=== PATIENT | male | born 1940 | race Caucasian/White ===

== ENCOUNTER → 2018-07-17 | Outpatient (CLI) | payer MEDICARE | END | disposition home or self-care (01) | LOC: LABPAT 13:39 | PROVIDERS: ATTEND Orthopaedic Surgery | DX: Z01.812 Encounter for preprocedural laboratory examination (principal) | CPT/HCPCS: 86850; 86900; 86901; 87070 ==

== ENCOUNTER 2018-07-27 05:53 | Inpatient (IN) | payer MEDICARE ==
[2018-07-23 10:12] VITALS: BMI 37.5
--- NOTE | 2018-07-26 17:16 | HP ---
HISTORY AND PHYSICAL REASON FOR ADMISSION: Surgery scheduled for 07/27/2018 HISTORY OF PRESENT ILLNESS: Laurent Argueta is a 78-year-old patient seen with symptomatic right hip osteoarthritis. Treatment options were discussed. He elected to proceed with direct anterior total hip arthroplasty. Consent was obtained. Medical clearance was provided by Dr. Sibley. PAST MEDICAL HISTORY: Bln-yhcjiis-[id number] diabetes, hypertension. PAST SURGICAL HISTORY: Noncontributory. MEDICATIONS: Lisinopril, glimepiride, allopurinol. ALLERGIES: SULFA. SOCIAL HISTORY: Denies tobacco use. PHYSICAL EXAMINATION: Evaluation of the right hip, he has very limited range of motion with severe pain. Positive hip impingement sign. Straight leg raise negative. Distal neurovascular exam intact. RADIOGRAPHS: Radiographs of the right hip reveal severe osteoarthritic changes. IMPRESSION: 1. Right hip osteoarthritis. 2. Hypertension. 3. Oue-rsptxih-oqrvzsuwy diabetes. PLAN: Direct anterior right total hip arthroplasty. Surgery scheduled for 07/27/2018. MMODL / IJN: [id number] /
[~2018-07-27 05:53] MED LIST: ACETAMINOPHEN TAB 500 MG TAB PO ONE; DEXAMETHASONE SOD PHOSPHATE 10 MG/ML 1 ML VIAL IV ONE; HYDROmorphone 0.5 MG/0.5 ML SYRINGE IVP PRN; LACTATED RINGERS 1,000 ML IV SCH; LIDOCAINE 1% 20 ML VIAL (10MG/ML) FOR IV START INTRADERMA PRN; MELOXICAM 7.5 MG TAB PO ONE; MIDAZOLAM 2 MG/2 ML VIAL IV PRN; ONDANSETRON 4 MG/2 ML VIAL IVP ONE; TRANEXAMIC ACID 1,000 MG in SODIUM CHLORIDE 0.9% 50 ML IVPB ONE; ceFAZolin IN SWFI 2 GM/20 ML SYRINGE IVP ONE; fentaNYL (PF) 50 MCG/ML 2 ML AMP IV PRN
[2018-07-27 06:48] LABS: Glucose,Whole Blood 105 mg/dL (75-99)
[2018-07-27 07:09] LABS: Prothrombin Time 10.7 sec (9.0-12.0)
[2018-07-27] MEDS ORDERED: MIDAZOLAM 2 MG/2 ML VIAL ONE (07:23)
[2018-07-27] MEDS ORDERED: PHENYLEPHRINE-0.9% NACL SYG 1 MG/10 ML SYRINGE ONE (07:23)
[2018-07-27] MEDS ORDERED: fentaNYL (PF) 50 MCG/ML 2 ML AMP ONE (07:23)
[2018-07-27] MEDS ORDERED: SODIUM CHLORIDE 0.9% 100 ML BAG ONE (07:23)
[2018-07-27] MEDS ORDERED: TRANEXAMIC ACID 1,000 MG/10 ML VIAL ONE (07:23)
[2018-07-27] MEDS ORDERED: PROPOFOL 10 MG/ML 20 ML VIAL IV ONE (07:23)
[2018-07-27] MEDS ORDERED: ROPIVACAINE 246.25 MG, EPINEPHrine 0.5 MG, KETOROLAC 30 MG, cloNIDine HCL/PF 80 MCG, WA... MISCELLANE ONE ×5 (07:57)
[2018-07-27] MEDS ORDERED: ceFAZolin 3,000 MG in SODIUM CHLORIDE 0.9% IRRIGATIO 3,000 ML IRRIGATION ONE (08:01)
[2018-07-27] MEDS ORDERED: LACTATED RINGERS 1,000 ML IV ONE (08:32)
--- NOTE | 2018-07-27 09:31 | XR ---
EXAMINATION TYPE: XR Hip Limited RT DATE OF EXAM: 07/27/2018 COMPARISON: NONE HISTORY: Postop TECHNIQUE: One view submitted. FINDINGS: There is a prosthetic hip in near anatomic alignment. There is soft tissue edema and emphysema. IMPRESSION: 1. Postoperative change. Appears in near-anatomic alignment.
--- NOTE | 2018-07-27 09:32 | FL ---
EXAMINATION TYPE: FL guidance operating room DATE OF EXAM: 07/27/2018 HISTORY: Flouroscopy time 35 seconds of fluoroscopy provided. IMPRESSION: 1. Fluoroscopy time.
[2018-07-27] MEDS ORDERED: HYDROcodone/APAP 7.5-325MG 1 EACH TAB PO PRN (09:40)
[2018-07-27] MEDS ORDERED: ONDANSETRON 4 MG/2 ML VIAL IVP PRN (09:40)
[2018-07-27] MEDS ORDERED: traMADol 50 MG TAB PO PRN (09:40)
[2018-07-27] MEDS ORDERED: NALOXONE 0.4 MG/ML 1 ML VIAL IV PRN (09:40)
[2018-07-27] MEDS ORDERED: HYDROmorphone 0.5 MG/0.5 ML SYRINGE IVP PRN ×3 (09:40)
--- NOTE | 2018-07-27 09:40 | P.OP ---
Date of Procedure: 07/27/18 Preoperative Diagnosis: Right hip osteoarthritis Postoperative Diagnosis: Right hip osteoarthritis Procedure(s) Performed: Direct anterior right total hip arthroplasty Implants: 1. Depuy Corail KA size 13 standard collar press-fit femoral stem 2. Depuy pinnacle 58 mm press-fit acetabular shell 3. Depuy pinnacle polyethylene acetabular liner neutral 36 mm ID 58 mm OD 4. Biolox delta ceramic femoral head plus 536 millimeter 5. 3-6.5 mm [place] cancellus screws Anesthesia: local, spinal Surgeon: Anthony Dahl Co Director #1: Joseph York Estimated Blood Loss (ml): 400 Pathology: other (Femoral head) Condition: stable Disposition: PACU Indications for Procedure: 78-year-old patient seen with symptomatic right hip osteoarthritis. After treatment options were discussed, he elected to proceed with total hip arthroplasty. Operative Findings: See description of procedure Description of Procedure: The patient was taken to the operative suite. Patient underwent a spinal anesthetic by the department of anesthesia. Patient was then transferred to the [place] table. Patient was given preoperative IV antibiotics and TXA. Both lower extremities were placed in standard leg spars. The hip was then prepped and draped in the normal sterile orthopedic fashion. A standard anterior incision was made beginning 3 cm lateral and 1 cm distal to the ASIS extending 10 cm. Dissection was then carried down through the subcutaneous soft tissues down to the fascia overlying the tensor fascia trevon. An incision was now made through the fascia. Careful dissection was taken down exposing the tensor fascia trevon muscle. A Cobra retractor was now placed along the medial femoral neck and a second one along the lateral femoral neck. The venous circumflex vessels were now identified, cauterized and clipped. We identified the anterior hip capsule. An incision was made through the hip capsule along the lateral border. I performed a partial anterior capsulectomy. Retractors were now placed around the femoral neck itself. A femoral neck cut was now made with a sagittal saw. It was completed with an osteotome at the lateral neck area. The femoral head was now removed without difficulty. The extremity was now rotated to 45 of external rotation. It was locked in position. Residual labrum was now debrided out. Serial reaming was performed of the acetabulum while Kevon ROCK assisted holding an anterior retractor for exposure. Once we reached the appropriate size and a trial was position and fit nicely. The appropriate size was now chosen opened and made available. It was introduced into the acetabulum without difficulty. The C-arm/fluoroscopy was now brought into the operative field. We made sure we had a true AP pelvic view. We now under direct C-arm/fluoroscopy introduced into the acetabular component with appropriate version and inclination. I held the cup in appropriate position well Kevon ROCK used a mallet to seat the acetabular component. I noted the component now to be well seated but did not seem well fixed. I now placed 36.5 mm cancellous bone screws with excellent purchase and good fixation. The wound was irrigated with pulse lavage mechanical irrigation. Acetabular cup introduce her was removed. The C-arm was pulled back. An appropriate liner was introduced and clicked into position. It was felt to be stable. At this point retractors were removed. The extremity was now placed into 120 external rotation with no traction. The leg was now dropped to the ground and adducted. Appropriate retractors were now positioned along the proximal femur. We also placed our femoral look into position. Additional capsular releasing was performed to gain access to the proximal femur. We now used a box osteotome. A canal finder was now utilized. Serial broaching was now performed with the assistance of Kevon ROCK tapping the broaches down with a mallet while held the broach in appropriate rotation and position. This was done until we reached the appropriate size with good overall rotational stability. Appropriate calcar planing was performed. A trial head/neck was placed into position. The hip was now reduced. The C-arm/fluoroscopy was brought back into the operative field. A spot film was obtained of the nonoperative hip. A spot film was obtained of the trial components. Overlays were performed, we noted good overall alignment and positioning for determining leg length. The C-arm/fluoroscopy was pulled back. Retractors were repositioned and the hip was dislocated. The leg was again taken down to the ground and adducted. Appropriate retractors were repositioned as well as the femoral hook. All trial components were removed. The femoral implant was opened along with the femoral head. The femoral implant was introduced on the appropriate handle into our pre-broached area. I held the component position well Kevon ROCK used a mallet to seat the femoral component. The femoral component was now noted to be well seated and stable.. The femoral head was introduced with good positioning and fixation noted. Retractors were now removed. The hip was now reduced. There appeared be good positioning of the hip confirmed on intraoperative fluoroscopy. Spot films were obtained to document this. A second gram of TXA was given. The deep and superficial soft tissues were infiltrated with local analgesic. Bipolar cautery had been utilized intermittently through the procedure for hemostasis. The wound was irrigated copiously with pulse lavage mechanical irrigation. The fascia was repaired with Vicryl suture. The subcutaneous soft tissues were repaired in layers with Vicryl suture. The skin was approximated with pernio/Dermabond. Sterile dressings were applied. Patient was then awakened, transferred to a bed and taken to recovery in stable condition. Kevon ROCK assisted with the complex procedure.
[2018-07-27 10:24] LABS: Glucose,Whole Blood 145 mg/dL (75-99)
[2018-07-27] MEDS: LACTATED RINGERS 1,000 ML IV SCH ×2 (10:24→23:21)
[2018-07-27] MEDS ORDERED: ACETAMINOPHEN TAB 325 MG TAB PO PRN (11:18)
[2018-07-27 11:36] LABS: Glucose,Whole Blood 153 mg/dL (75-99)
--- NOTE | 2018-07-27 13:51 | P.CONS ---
History of Present Illness - Reason for Consult Consult date: 07/27/18 Right total hip arthroplasty: Hypertension, EPH, history of gout and diabet Requesting physician: Anthony Dahl - Chief Complaint Anterior approach right total hip arthroplasty - History of Present Illness 78-year-old male one of Dr. Sibley patient with past medical history of diabetes, hypertension, BPH and gout who has been complaining of worsening arthritis of the right hip for the last few years was referred to orthopedics seen and evaluated and discussed possibility of going for total hip arthroplasty. Surgery was arranged done today successfully with Dr. Dahl. Patient was admitted to the floor after surgery his pain-free no Mcclellan catheter and hemodynamically very stable. Review of Systems CONSTITUTIONAL: Well-developed no acute respiratory distress. EYES: No icterus sclerae, no conjunctivitis. EARS, NOSE, MOUTH, THROAT, and FACE: No sore throat, lymphadenopathy, carotid bruits or deformity. RESPIRATORY: No SOB cough or wheezes. CARDIOVASCULAR: No CP, Palpitation, PND, Orthopnea, or angina. GASTROINTESTINAL: No Abd pain, Nausea or vomiting, no Diarrhea or constipation, No GI Bleed, no distention or masses. GENITOURINARY: Negative for Hematuria or UTI, no kidney stones. INTEGUMENT/BREAST: Negative for any muscular injury with mild osteoarthritis.. HEMATOLOGIC/LYMPHATIC: Negative for bleed or purpura. MUSCULOSKELTAL: Right hip surgery incision looks fine. NEURLOGICAL: No LOC, Sz or syncope, blurred vision dizziness or abnormality.. BEHAVIORAL/PSYCH: Negative. ENDOCRINE: Negative. Past Medical History Past Medical History: Cancer, Diabetes Mellitus, Hypertension Additional Past Medical History / Comment(s): "slight abdominal hernia", gout, hx skin cancer History of Any Multi-Drug Resistant Organisms: None Reported Past Surgical History: Tonsillectomy Additional Past Surgical History / Comment(s): removal of skin cancer from nose Past Anesthesia/Blood Transfusion Reactions: No Reported Reaction Smoking Status: Never smoker - Past Family History Father Family Medical History: Cancer Medications and Allergies Home Medications Medication Instructions Recorded Confirmed Type Acetaminophen 650 mg PO TID PRN 07/23/18 07/27/18 History Allopurinol [Zyloprim] 300 mg PO DAILY 07/23/18 07/27/18 History Aspirin [Adult Low Dose Aspirin EC] 81 mg PO DAILY 07/23/18 07/27/18 History Lisinopril 20 mg PO DAILY 07/23/18 07/27/18 History Glimepiride [Amaryl] 1 mg PO W/SUPPER 07/27/18 07/27/18 History Allergies Allergy/AdvReac Type Severity Reaction Status Date / Time No Known Allergies Allergy Verified 07/27/18 10:52 Physical Exam Vitals: Vital Signs Temp Pulse Resp BP Pulse Ox 07/27/18 12:44 62 101/57 96 07/27/18 12:30 72 101/56 95 07/27/18 12:15 72 103/56 95 07/27/18 12:00 67 113/55 96 07/27/18 11:45 62 124/60 96 07/27/18 11:30 71 115/96 90 L 07/27/18 11:15 64 104/66 90 L 07/27/18 11:00 81 121/64 97 07/27/18 10:45 98.4 F 64 16 101/57 93 L 07/27/18 10:30 63 18 101/60 98 07/27/18 10:15 66 18 95/60 96 07/27/18 10:04 61 18 102/61 96 07/27/18 09:52 97 F L 55 L 18 89/64 94 L 07/27/18 06:48 98.3 F 85 16 138/78 96 Intake and Output 07/26/18 07/27/18 07/27/18 22:59 06:59 14:59 Intake Total 200 1851 Output Total 400 Balance 200 1451 Intake: IV 200 1851 Output: Estimated Blood Loss 400 General Appearance: Alert, cooperative, no distress, appears stated age. Neck HEENT: Supple, no lymphadenopathy, no thyroid enlargement, no carotid bruits. Lungs: Clear to auscultation without crackles or wheezes no rhonchi, no deformity. Chest Wall: Chest wall normal expansion with deep inspiration no tenderness and no deformity was found on exam, no costochondral pain or discomfort. Heart: Regular rate and rhythm, S1, S2 normal, no murmur, rub or gallop. Back: Symmetric, no curvature, ROM normal, no CVA tenderness. Abdomen: Soft, non-tender, bowel sounds active all four quadrants, no masses, no organomegaly. Extremities: Right thigh and surgical site looks perfectly good with no induration no bleeding. Patient is able to wiggle his toes 1 hour after surgery his anesthesia is recovering slowly. Pulses: 2+ and symmetric. Skin: Skin color, texture, tugor normal, no rashes or lesions. Neurologic: Alert oriented x3 cranial nerves II through XII intact, no motor deficit, no abnormal balance or gait. Results Labs: Abnormal Lab Results - Last 24 Hours (Table) 07/27/18 07/27/18 07/27/18 Range/Units 06:44 10:22 11:20 POC Glucose (mg/dL) 105 H 145 H 153 H (75-99) mg/dL Assessment and Plan Plan: 1 post right total hip arthroplasty: Resume home meds, watch patient and with dynamic status, watch for any complication, control patient's pain, anticoagulation and pulmonary prophylaxis protocol will be done. 2 type 2 diabetes: On exam bright 1 mg daily, Accu-Chek with sliding coverage and be done. 3 hypertension: Patient is doing well on lisinopril 20 mg a day resume medication will hold medication if systolic is below 100. 4 gout: Has been on Zyloprim 300 mg daily continue medication. 5 anticoagulation: Patient was started on Lovenox and we'll continue anticoagulation per orthopedic protocol whether to leave the hospital on Xarelto or on aspirin only to be determined by orthopedics. 6 pain management: Patient was started on fentanyl and Dilaudid to oral hydrocodone 7.5 mg will be use every 6 hours. 7 BPH: Watch for any urinary retention no Mcclellan catheter was done: Watch any retention on bladder scanner and repeat CMP tomorrow. 8 GI prophylaxis: Patient will be on Pepcid 20 mg daily. CODE STATUS: Full code. Dr. Dahl thank you much for the consult if I can be any further help to please let me know.
[2018-07-27] MEDS: HYDROcodone/APAP 7.5-325MG 1 EACH TAB PO PRN ×2 (13:58→19:25)
[2018-07-27] MEDS: ceFAZolin IN SWFI 2 GM/20 ML SYRINGE IVP SCH (16:35)
[2018-07-27 17:24] LABS: Glucose,Whole Blood 153 mg/dL (75-99)
[2018-07-27] MEDS ORDERED: GLIMEPIRIDE 1 MG TAB PO SCH (17:30)
[2018-07-27 20:44] LABS: Glucose,Whole Blood 129 mg/dL (75-99)
[2018-07-27] MEDS ORDERED: SENNOSIDES-DOCUSATE SODIUM 1 EACH TAB PO SCH (21:00)
[2018-07-28] MEDS: ceFAZolin IN SWFI 2 GM/20 ML SYRINGE IVP SCH (00:15)
[2018-07-28] MEDS: LACTATED RINGERS 1,000 ML IV SCH (00:18)
[2018-07-28 06:52] LABS: Glucose,Whole Blood 118 mg/dL (75-99)
[2018-07-28 07:29] LABS: Basophils % (A) 0 %; Eosinophils # (A) 0.1 k/uL (0-0.7); Eosinophils % (A) 0 %; HCT 31.6 % (39.0-53.0); HGB 10.2 gm/dL (13.0-17.5); Lymphocytes # (A) 1.8 k/uL (1.0-4.8); Lymphocytes % (A) 17 %; MCH 29.3 pg (25.0-35.0); MCHC 32.3 g/dL (31.0-37.0); MCV 90.6 fL (80.0-100.0); Monocytes # (A) 0.7 k/uL (0-1.0); Monocytes % (A) 6 %; Neutrophils # (A) 7.8 k/uL (1.3-7.7); Neutrophils % (A) 75 %; Platelet Count 248 k/uL (150-450); RBC 3.49 m/uL (4.30-5.90); RDW 14.9 % (11.5-15.5); WBC 10.4 k/uL (3.8-10.6)
[2018-07-28 07:39] LABS: ALT 29 U/L (21-72); AST 37 U/L (17-59); Albumin 3.1 g/dL (3.5-5.0); Alkaline Phosphatase 45 U/L (38-126); Anion Gap 6 mmol/L; Blood Urea Nitrogen 27 mg/dL (9-20); Calcium 8.6 mg/dL (8.4-10.2); Carbon Dioxide 23 mmol/L (22-30); Chloride 108 mmol/L (98-107); Glucose 110 mg/dL (74-99); Potassium 4.6 mmol/L (3.5-5.1); Sodium 137 mmol/L (137-145); Total Bilirubin 0.6 mg/dL (0.2-1.3); Total Protein 5.6 g/dL (6.3-8.2)
[2018-07-28 08:21] VITALS: BP 130/76; PULSE 85; RESP 16; TEMP 98.2
[2018-07-28] MEDS ORDERED: ENOXAPARIN 40 MG/0.4 ML SYRINGE SQ SCH (09:00)
[2018-07-28] MEDS ORDERED: LISINOPRIL 20 MG TAB PO SCH (09:00)
[2018-07-28] MEDS ORDERED: ALLOPURINOL 300 MG TAB PO SCH (09:00)
[2018-07-28] MEDS ORDERED: FAMOTIDINE 20 MG TAB PO SCH (09:00)
[2018-07-28] MEDS ORDERED: ASPIRIN 81 MG PO SCH (09:00)
[2018-07-28] MEDS ORDERED: MELOXICAM 7.5 MG TAB PO SCH (09:00)
--- NOTE | 2018-07-28 09:09 | P.PN ---
Subjective Progress Note Date: 07/28/18 Principal diagnosis: - Chief Complaint Anterior approach right total hip arthroplasty - History of Present Illness 78-year-old male one of Dr. Sibley patient with past medical history of diabetes, hypertension, BPH and gout who has been complaining of worsening arthritis of the right hip for the last few years was referred to orthopedics seen and evaluated and discussed possibility of going for total hip arthroplasty. Surgery was arranged done today successfully with Dr. Dahl. Patient was admitted to the floor after surgery his pain-free no Mcclellan catheter and hemodynamically very stable. 07/28: Patient is feeling much better pain is well controlled his urine output is good, vital signs are perfectly good and normal. He still on anticoagulation with Lovenox this morning and aspirin orthopedic probably will be sending him home on aspirin only. Patient is medically stable to be discharged today if it's okay with orthopedics. Objective - Vital Signs Vital signs: Vital Signs Temp 98.2 F 07/28/18 08:21 Pulse 85 07/28/18 08:21 Resp 16 07/28/18 08:21 BP 130/76 07/28/18 08:21 Pulse Ox 97 07/28/18 08:21 Intake & Output 07/27/18 07/28/18 07/28/18 18:59 06:59 18:59 Intake Total 1851 600 Output Total 400 600 Balance 1451 -600 600 Intake: IV 1851 Oral 600 Output: Urine 600 Estimated Blood Loss 400 Other: Voiding Method Toilet - Exam Review of Systems CONSTITUTIONAL: Well-developed no acute respiratory distress. EYES: No icterus sclerae, no conjunctivitis. EARS, NOSE, MOUTH, THROAT, and FACE: No sore throat, lymphadenopathy, carotid bruits or deformity. RESPIRATORY: No SOB cough or wheezes. CARDIOVASCULAR: No CP, Palpitation, PND, Orthopnea, or angina. GASTROINTESTINAL: No Abd pain, Nausea or vomiting, no Diarrhea or constipation, No GI Bleed, no distention or masses. GENITOURINARY: Negative for Hematuria or UTI, no kidney stones. INTEGUMENT/BREAST: Negative for any muscular injury with mild osteoarthritis.. HEMATOLOGIC/LYMPHATIC: Negative for bleed or purpura. MUSCULOSKELTAL: Right hip surgery incision looks fine. NEURLOGICAL: No LOC, Sz or syncope, blurred vision dizziness or abnormality.. BEHAVIORAL/PSYCH: Negative. ENDOCRINE: Negative. General Appearance: Alert, cooperative, no distress, appears stated age. Neck HEENT: Supple, no lymphadenopathy, no thyroid enlargement, no carotid bruits. Lungs: Clear to auscultation without crackles or wheezes no rhonchi, no deformity. Chest Wall: Chest wall normal expansion with deep inspiration no tenderness and no deformity was found on exam, no costochondral pain or discomfort. Heart: Regular rate and rhythm, S1, S2 normal, no murmur, rub or gallop. Back: Symmetric, no curvature, ROM normal, no CVA tenderness. Abdomen: Soft, non-tender, bowel sounds active all four quadrants, no masses, no organomegaly. Extremities: Right thigh and surgical site looks perfectly good with no induration no bleeding. Patient is able to wiggle his toes 1 hour after surgery his anesthesia is recovering slowly. Pulses: 2+ and symmetric. Skin: Skin color, texture, tugor normal, no rashes or lesions. Neurologic: Alert oriented x3 cranial nerves II through XII intact, no motor deficit, no abnormal balance or gait. - Labs CBC & Chem 7: 07/28/18 06:15 07/28/18 06:15 Labs: Abnormal Lab Results - Last 24 Hours (Table) 07/27/18 07/27/18 07/27/18 Range/Units 10:22 11:20 17:13 RBC (4.30-5.90) m/uL Hgb (13.0-17.5) gm/dL Hct (39.0-53.0) % Neutrophils # (1.3-7.7) k/uL Chloride (98-107) mmol/L BUN (9-20) mg/dL Glucose (74-99) mg/dL POC Glucose (mg/dL) 145 H 153 H 153 H (75-99) mg/dL Total Protein (6.3-8.2) g/dL Albumin (3.5-5.0) g/dL 07/27/18 07/28/18 07/28/18 Range/Units 20:43 06:15 06:15 RBC 3.49 L (4.30-5.90) m/uL Hgb 10.2 L (13.0-17.5) gm/dL Hct 31.6 L (39.0-53.0) % Neutrophils # 7.8 H (1.3-7.7) k/uL Chloride 108 H (98-107) mmol/L BUN 27 H (9-20) mg/dL Glucose 110 H (74-99) mg/dL POC Glucose (mg/dL) 129 H (75-99) mg/dL Total Protein 5.6 L (6.3-8.2) g/dL Albumin 3.1 L (3.5-5.0) g/dL 07/28/18 Range/Units 06:47 RBC (4.30-5.90) m/uL Hgb (13.0-17.5) gm/dL Hct (39.0-53.0) % Neutrophils # (1.3-7.7) k/uL Chloride (98-107) mmol/L BUN (9-20) mg/dL Glucose (74-99) mg/dL POC Glucose (mg/dL) 118 H (75-99) mg/dL Total Protein (6.3-8.2) g/dL Albumin (3.5-5.0) g/dL Assessment and Plan Plan: 1 post right total hip arthroplasty: Patient is doing very well day 1 after surgery titrate physical therapy, IV will be discontinued, continue pain management and continue anticoagulation. 2 type 2 diabetes: On exam bright 1 mg daily, Accu-Chek has been doing very well below 120 last 24 hours, patient be discharged home on his home oral meds. 3 hypertension: Patient is doing well on lisinopril 20 mg a day resume medication will hold medication if systolic is below 100. 4 gout: Has been on Zyloprim 300 mg daily continue medication. 5 anticoagulation: Patient was started on Lovenox and we'll continue anticoagulation per orthopedic protocol whether to leave the hospital on Xarelto or on aspirin only to be determined by orthopedics. 6 pain management: Patient was started on fentanyl and Dilaudid to oral hydrocodone 7.5 mg will be use every 6 hours. 7 BPH: Watch for any urinary retention no Mcclellan catheter was done: Watch any retention on bladder scanner and repeat CMP tomorrow. 8 GI prophylaxis: Patient will be on Pepcid 20 mg daily. Patient is medically stable to be discharged home today thank you.
[2018-07-28 11:41] LABS: Glucose,Whole Blood 115 mg/dL (75-99)
--- NOTE | 2018-07-28 11:58 | P.PN ---
Subjective Progress Note Date: 07/28/18 Principal diagnosis: Status post right total hip arthroplasty Patient evaluated bedside, he's resting comfortably. Pain is well-controlled. No shortness of breath or chest pain noted. Objective - Vital Signs Vital signs: Vital Signs Temp 98.2 F 07/28/18 08:21 Pulse 85 07/28/18 08:21 Resp 16 07/28/18 08:21 BP 130/76 07/28/18 08:21 Pulse Ox 97 07/28/18 08:21 Intake & Output 07/27/18 07/28/18 07/28/18 18:59 06:59 18:59 Intake Total 1851 600 Output Total 400 600 Balance 1451 -600 600 Intake: IV 1851 Oral 600 Output: Urine 600 Estimated Blood Loss 400 Other: Voiding Method Toilet - Exam Right lower extremity: Incision is clean, dry, and intact. The exofin fusion tape is in good condition. There is minimal soft tissue swelling and ecchymosis surrounding the medial and lateral aspects of the incision. Calf is soft, no tenderness with palpation. Plantar flexion, dorsiflexion, EHL, FHL are intact. Sensory exam to light touch throughout the extremity is intact, dorsal pedis pulses 2+. - Labs CBC & Chem 7: 07/28/18 06:15 07/28/18 06:15 Labs: Abnormal Lab Results - Last 24 Hours (Table) 07/27/18 07/27/18 07/28/18 Range/Units 17:13 20:43 06:15 RBC 3.49 L (4.30-5.90) m/uL Hgb 10.2 L (13.0-17.5) gm/dL Hct 31.6 L (39.0-53.0) % Neutrophils # 7.8 H (1.3-7.7) k/uL Chloride (98-107) mmol/L BUN (9-20) mg/dL Glucose (74-99) mg/dL POC Glucose (mg/dL) 153 H 129 H (75-99) mg/dL Total Protein (6.3-8.2) g/dL Albumin (3.5-5.0) g/dL 07/28/18 07/28/18 07/28/18 Range/Units 06:15 06:47 11:36 RBC (4.30-5.90) m/uL Hgb (13.0-17.5) gm/dL Hct (39.0-53.0) % Neutrophils # (1.3-7.7) k/uL Chloride 108 H (98-107) mmol/L BUN 27 H (9-20) mg/dL Glucose 110 H (74-99) mg/dL POC Glucose (mg/dL) 118 H 115 H (75-99) mg/dL Total Protein 5.6 L (6.3-8.2) g/dL Albumin 3.1 L (3.5-5.0) g/dL Assessment and Plan Plan: Assessment: Postoperative day 1 status post right total hip arthroplasty Plan: Pain control, discharge home on oral medication DVT prophylaxis, aspirin 81 mg twice a day Wound care instructions discussed physical therapy and nursing after discharge Plan for discharge home today Time with Patient: Less than 30
--- NOTE | 2018-07-28 11:59 | P.DS ---
Providers Date of admission: 07/27/18 05:53 Expected date of discharge: 07/28/18 Attending physician: Anthony Dahl Consults: 07/27/18 09:40 Consult Physician Routine Consulting Provider: Jalen Sibley Reason/Comments: Medical management Do you want consulting provider notified?: Yes Primary care physician: Jalen Sibley Hospital Course: Date of admission: 07/27/2018 Date of discharge: 07/28/2018 Admission diagnosis: Status post right total hip arthroplasty direct anterior Discharge diagnosis: Same Attending physician: Dr. Dahl Surgical procedures: Direct anterior right total hip arthroplasty Brief history: Patient is a 78-year-old male with a history of progressive primary right hip osteoarthritis. At this point patient has failed conservative treatment measures and has opted to proceed with a elective right total hip arthroplasty. Hospital course: Details of patient's surgery can be found in operative report. Patient tolerated the procedure well and was subsequently transported to orthopedic floor. Patient's orthopeidc and medical care was provided daily. Patient had daily laboratory tests performed for evaluation of overall blood counts. Patient had daily physical therapy to include strengthening range of motion as well as education with walker ambulation. Patient was treated with Lovenox for their postoperative DVT prophylaxis during their inpatient stay. Patient was noted to have a relatively uneventful postoperative course. Patient reported satisfactory pain control with oral pain medications by postoperative day 0. Patient showed satisfactory progress with physical therapy. Patient moved steadily through the program and had no difficulty meeting the goals by postoperative day 1. Given patient's otherwise satisfactory course and having met physical therapy goals, plan is to discharge patient home on postoperative day 1. Discharge condition/disposition: Patient will be discharged home in stable condition. Discharge medications: Instructions are given on resumption of patient's normal daily medications per primary care recommendation, in addition patient will be prescribed [place] 7.5 mg/25 mg, aspirin 81 mg. Discharge instructions: 1. Wound care and infection precautions, keep incision dry and covered while showering, no lotions, creams, moisturizers. No soaking, tubs, pools, hottubs. Do not scrub over the incision. 2. Weight-bear as tolerated with walker / cane until follow-up. 3. Ice and elevate when necessary. Do not exceed 20 minutes per hour with ice pack. 4. Utilize compression sleeve until seen at first follow up appointment. 5. Visiting nursing care. 6. Home physical therapy. 7. Pain meds and anticoagulants per prescription. 8. Pain medication has potential to cause constipation. Increase oral fluid and fiber intake. Contact primary care provider if you have not had a bowel movement within 48 hours after discharge 9. No anti-inflammatory medication until discussed at first post operative visit, this including Motrin, Aleve, Mobic, Diclofenac. 10. Follow up in office at 2 weeks postop with Kevon York PA-C 11. Follow up with your primary care doctor 7-10 days after discharge. 12. Contact [facility] with any questions, . Procedures: Direct anterior right total hip arthroplasty Patient Condition at Discharge: Good Plan - Discharge Summary Discharge Rx Participant: Yes New Discharge Prescriptions: New Aspirin [Adult Low Dose Aspirin EC] 81 mg PO BID #60 tablet. HYDROcodone/APAP 7.5-325MG [[place] 7.5] 1 each PO Q6HR PRN #28 tab PRN Reason: Pain No Action Lisinopril 20 mg PO DAILY Allopurinol [Zyloprim] 300 mg PO DAILY Acetaminophen 650 mg PO TID PRN PRN Reason: Pain Glimepiride [Amaryl] 1 mg PO W/SUPPER Discharge Medication List Acetaminophen 650 mg PO TID PRN 07/23/18 [History] Allopurinol [Zyloprim] 300 mg PO DAILY 07/23/18 [History] Lisinopril 20 mg PO DAILY 07/23/18 [History] Glimepiride [Amaryl] 1 mg PO W/SUPPER 07/27/18 [History] Aspirin [Adult Low Dose Aspirin EC] 81 mg PO BID #60 tablet. 07/28/18 [Rx] HYDROcodone/APAP 7.5-325MG [[place] 7.5] 1 each PO Q6HR PRN #28 tab 07/28/18 [Rx] Follow up Appointment(s)/Referral(s): [facility], [NON-STAFF] - Joseph York PAC [PHYSICIAN PRE BILLING CLINICIAN] - 08/12/18 3:50 pm Jalen Sibley MD [Primary Care Provider] - 08/13/18 9:00 am Patient Instructions/Handouts: Anterior Hip Replacement (DC) Activity/Diet/Wound Care/Special Instructions: Orthopedic Discharge Instructions: 1. Wound care and infection precautions, keep incision dry and covered while showering, no lotions, creams, moisturizers. No soaking, pools, hot tubs. Do not scrub over incision. 2. Weight-bear as tolerated with walker / cane until follow-up. 3. Ice and elevate when necessary. Do not exceed 20 minutes per hour with ice pack. 4. Utilize compression sleeve until seen at first follow up appointment. 5. Pain meds and anticoagulants per prescription. 6. Pain medication has potential to cause constipation. Increase oral fluid and fiber intake. Contact primary care provider if you have not had a bowel movement within 48 hours after discharge. 7. No anti-inflammatory medication until discussed at first post operative visit, this including Motrin, Aleve, Mobic, Diclofenac. 8. Follow up in office at 2 weeks postop with Kevon York PA-C 9. Follow up with your primary care doctor 7-10 days after discharge. 10. Contact [facility] with any questions, . Discharge Disposition: HOME WITH HOME HEALTH SERVICES
== END 2018-07-28 13:11 | disposition home health service (06) | DRG 470 ==
LOC: 2ORMAIN 05:53 → 4SSUR 10:16
PROVIDERS: ADMIT Orthopaedic Surgery; ATTEND Orthopaedic Surgery
PROC: 0SR904A Replacement of Right Hip Joint with Ceramic on Polyethylene Synthetic Substitute, Uncemented, Open Approach (ICD-10-PCS; principal; 2018-07-27 07:30)
DX: M16.11 Unilateral primary osteoarthritis, right hip (principal); E11.9 Type 2 diabetes mellitus without complications; I10 Essential (primary) hypertension; N40.0 Benign prostatic hyperplasia without lower urinary tract symptoms; Z79.82 Long term (current) use of aspirin; Z79.84 Long term (current) use of oral hypoglycemic drugs; Z79.899 Other long term (current) drug therapy; Z85.828 Personal history of other malignant neoplasm of skin; M10.9 Gout, unspecified
CPT/HCPCS: 73501; 80053; 85025; 85610; 86850; 86900; 86901; 88300

== ENCOUNTER 2018-11-19 03:44 | Emergency (ER) | payer MEDICARE ==
[2018-11-19 03:52] VITALS: BP 152/95; PULSE 96; RESP 20; TEMP 98.9
--- NOTE | 2018-11-19 04:25 | XR ---
EXAM: XR Abdomen, 2 Views CLINICAL HISTORY: Pain. TECHNIQUE: Frontal upright view of the abdomen/pelvis. 2 images were obtained. COMPARISON: No relevant prior studies available. FINDINGS: Intraperitoneal space: No evidence of free air. Gastrointestinal tract: Moderate stool in the colon. No significantly dilated small bowel loops to suggest small bowel obstruction. Bones/joints: Right hip arthroplasty. Osseous degenerative changes. IMPRESSION: Moderate stool in the colon. Correlate for constipation.
--- NOTE | 2018-11-19 05:56 | ED ---
General Adult HPI - General Chief complaint: Urogenital Stated complaint: Urogenital Time Seen by Provider: 11/19/18 03:48 Source: patient Mode of arrival: ambulatory Limitations: no limitations - History of Present Illness Initial comments: This patient is 78-year-old man who presents with chief complaint of constipation. He states that it has been through 4 days without a bowel movement. Prior to that he was having hard bowel movements. The patient states that now he believes the constipation has caused him to stop been able urinate. He is complaining of suprapubic pressure type pain. Last urination was hours ago. No nausea or vomiting. No blood with bowel movements or dark tarry stools. -: days(s) Location: abdomen Radiation: abdomen Quality: other (Pressure) Consistency: constant Improves with: none Worsens with: none Associated Symptoms: denies other symptoms Treatments Prior to Arrival: none - Related Data Home Medications Medication Instructions Recorded Confirmed Acetaminophen 650 mg PO TID PRN 07/23/18 07/27/18 Allopurinol [Zyloprim] 300 mg PO DAILY 07/23/18 07/27/18 Lisinopril 20 mg PO DAILY 07/23/18 07/27/18 Glimepiride [Amaryl] 1 mg PO W/SUPPER 07/27/18 07/27/18 Previous Rx's Medication Instructions Recorded Aspirin [Adult Low Dose Aspirin EC] 81 mg PO BID #60 tablet. 07/28/18 HYDROcodone/APAP 7.5-325MG [[place] 1 each PO Q6HR PRN #28 tab 07/28/18 7.5] Allergies Allergy/AdvReac Type Severity Reaction Status Date / Time Sulfa (Sulfonamide Allergy Unknown Verified 11/19/18 03:52 Antibiotics) Childhood Review of Systems ROS Statement: Those systems with pertinent positive or pertinent negative responses have been documented in the HPI. ROS Other: All systems not noted in ROS Statement are negative. Constitutional: Denies: fever, chills Respiratory: Denies: cough, dyspnea Cardiovascular: Denies: chest pain, palpitations Gastrointestinal: Reports: abdominal pain, constipation. Denies: nausea, vomiting, diarrhea Genitourinary: Reports: other (Retention). Denies: dysuria, frequency, hematuria Musculoskeletal: Denies: back pain Skin: Denies: rash Neurological: Denies: headache, weakness, numbness Past Medical History Past Medical History: Cancer, Diabetes Mellitus, Hypertension Additional Past Medical History / Comment(s): "slight abdominal hernia", gout, hx skin cancer History of Any Multi-Drug Resistant Organisms: None Reported Past Surgical History: Tonsillectomy Additional Past Surgical History / Comment(s): removal of skin cancer from nose Past Anesthesia/Blood Transfusion Reactions: No Reported Reaction Past Psychological History: No Psychological Hx Reported Smoking Status: Never smoker Past Alcohol Use History: None Reported Past Drug Use History: None Reported - Past Family History Father Family Medical History: Cancer General Exam Limitations: no limitations General appearance: alert, in no apparent distress Head exam: Present: atraumatic, normocephalic Eye exam: Present: normal appearance. Absent: scleral icterus, conjunctival injection ENT exam: Present: normal oropharynx Neck exam: Present: normal inspection Respiratory exam: Present: normal lung sounds bilaterally. Absent: respiratory distress, wheezes, rales, rhonchi, stridor Cardiovascular Exam: Present: regular rate, normal rhythm, normal heart sounds. Absent: systolic murmur, diastolic murmur, rubs, gallop GI/Abdominal exam: Present: soft. Absent: distended, tenderness, guarding, rebound, rigid, mass, pulsatile mass, hernia Extremities exam: Present: normal inspection, normal capillary refill. Absent: pedal edema, calf tenderness Back exam: Present: normal inspection. Absent: CVA tenderness (R), CVA tenderness (L) Neurological exam: Present: alert Skin exam: Present: warm, dry, intact, normal color. Absent: rash Course Vital Signs 11/19/18 03:48 Temperature 98.9 F Pulse Rate 96 Respiratory 20 Rate Blood Pressure 152/95 O2 Sat by Pulse 97 Oximetry Medical Decision Making - Medical Decision Making Patient had relief of the urinary symptoms following straight cath. Then administered enema with moderate amount of stool and relief of the constipation type pressure/bloating symptoms. The patient feeling much better and would like to go home. Discussed appropriate further care as well as return parameters. Disposition Clinical Impression: Constipation, Urinary retention Disposition: HOME SELF-CARE Condition: Good Instructions (If sedation given, give patient instructions): Constipation (ED), Urinary Retention in Men (ED) Is patient prescribed a controlled substance at d/c from ED?: No Referrals: Jalen Sibley MD [Primary Care Provider] - 1-2 days
== END 2018-11-19 06:09 | disposition home or self-care (01) ==
LOC: EC 03:44
DX: K59.00 Constipation, unspecified (principal); R33.9 Retention of urine, unspecified; E11.9 Type 2 diabetes mellitus without complications; I10 Essential (primary) hypertension; M10.9 Gout, unspecified; Z88.2 Allergy status to sulfonamides; Z79.84 Long term (current) use of oral hypoglycemic drugs; Z79.899 Other long term (current) drug therapy; Z85.828 Personal history of other malignant neoplasm of skin; Z98.890 Other specified postprocedural states
CPT/HCPCS: 51701; 74018; 99284

== ENCOUNTER → 2018-12-21 | Outpatient (CLI) | payer MEDICARE ==
--- NOTE | 2018-12-21 16:12 | US ---
EXAMINATION TYPE: US scrotum with doppler. Grayscale and color Doppler Duplex imaging performed of t he scrotum. DATE OF EXAM: 12/21/2018 COMPARISON: NONE CLINICAL HISTORY: N50.89 Testicular swelling. EXAM MEASUREMENTS: TESTICLES: Right Testicle: 4.3 x 2.1 x 2.7 cm Left Testicle: 3.7 x 1.9 x 2.1 cm Doppler performed to assess for testicular vascularity; good bilateral color flow and waveforms are s een. There is no evidence of testicular torsion. Presence of hydroceles: no Presence of varicoceles: no IMPRESSION: No sonographic abnormality within the the testes.
== END | disposition home or self-care (01) ==
LOC: RADUSWWP 15:28
PROVIDERS: ATTEND Family Medicine
DX: N50.89 Other specified disorders of the male genital organs (principal)
CPT/HCPCS: 76870; 93975